=== PATIENT | male | born 1965 | race Caucasian/White ===

== ENCOUNTER 2023-10-13 08:07 | Outpatient (RCR) | payer MEDICARE, OTHER, MEDICAID, SELFPAY | END 2024-07-01 15:09 | disposition home or self-care (01) | LOC: HO.WCC 08:07 | PROVIDERS: PCP Internal Medicine; Visit Provider Physician Assistant | DX: L97.821 Non-pressure chronic ulcer of other part of left lower leg limited to breakdown of skin (principal); L97.812 Non-pressure chronic ulcer of other part of right lower leg with fat layer exposed; L89.310 Pressure ulcer of right buttock, unstageable; L30.9 Dermatitis, unspecified; I89.0 Lymphedema, not elsewhere classified; I73.9 Peripheral vascular disease, unspecified; F17.210 Nicotine dependence, cigarettes, uncomplicated; E66.01 Morbid (severe) obesity due to excess calories | CPT/HCPCS: 11042; 11045; 29581; 97597; 97598; 99213 ==